=== PATIENT | male | born 1980 | race Caucasian/White ===

== ENCOUNTER → 2017-02-25 | Outpatient (CLI) | payer OTHER ==
[~2017-02-25] MED LIST: CETI10TA84 PO; CLON0.5T3 PO; DULO60CA44 PO; FENO54TA PO; GABA1CAP PO; GABA800T PO; HYDR-5688 PO; HYDR25TA4 PO; ONDA4TAB7 SL; PANT40TA PO; WLLSR/150 PO
[2017-02-25 12:40] LABS: BLOOD UREA NITROGEN 16 mg/dl (7-18); CALCIUM 9.3 mg/dl (8.5-10.1); CARBON DIOXIDE 33 mmol/L (21-32); CREATININE 0.84 mg/dl (0.60-1.40); GLUCOSE 94 mg/dl (70-99); POTASSIUM 4.1 mmol/L (3.5-5.1); SODIUM 138 mmol/L (136-145)
== END | disposition home or self-care (01) ==
LOC: C.LABPBG 08:07
PROVIDERS: ATTEND Family Medicine
DX: I10 Essential (primary) hypertension (principal)

== ENCOUNTER → 2017-03-02 | Outpatient (CLI) | payer OTHER ==
--- NOTE | 2017-03-02 13:16 | DIAGNOSTIC IMAGING REPORT ---
PA CHEST WITH ABDOMINAL SERIES CLINICAL HISTORY: Change in bowel habits. Bloating. FINDINGS: A PA chest radiograph is obtained. No prior studies are available for comparison at the time of dictation. The cardiomediastinal silhouette is unremarkable. The lungs and pleural spaces are clear. No pneumothorax is seen. The bony thorax is grossly intact. Supine and erect abdominal radiographs are correlated with abdominal CT dated 06/09/2012. An intrathecal catheter is in place. The tip terminates at the level of T5. The catheter is intact as visualized. There is a nonobstructed abdominal bowel gas pattern. No evidence of intraperitoneal free air is seen. There are no abnormal abdominal calcifications. There are small phleboliths in the pelvis. The lumbosacral spine and bony pelvis appear intact. Fusion hardware is noted in the lumbar spine. IMPRESSION: 1. No active disease in the chest. 2. Nonobstructed abdominal bowel gas pattern. 3. Additional findings as above. Electronically signed by: Bj Jacobo M.D. 03/02/2017 1:15 PM Dictated Date/Time: 03/02/2017 1:13 PM
[2017-03-02 14:34] LABS: BASO % 0.9 %; BASO ABS # 0.05 K/uL (0-0.2); EOS % 6.2 %; EOS ABS # 0.36 K/uL (0-0.5); HEMATOCRIT 40.3 % (42-52); IG# 0.02 K/uL (0.00-0.02); LYMPH % 38.4 %; LYMPH ABS # 2.23 K/uL (1.2-3.4); MEAN CORPUSCULAR HEMOGLOBIN 30.2 pg (25-34); MEAN CORPUSCULAR HGB CONC 34.7 g/dl (32-36); MEAN PLATELET VOLUME 10.6 fL (7.4-10.4); MONO % 9.1 %; MONO ABS # 0.53 K/uL (0.11-0.59); NEUT % 45.1 %; NEUT ABS # 2.61 K/uL (1.4-6.5); PLATELET COUNT 218 K/uL (130-400); RED CELL DISTRIBUTION WIDTH CV 12.7 % (11.5-14.5); RED CELL DISTRIBUTION WIDTH SD 40.7 fL (36.4-46.3)
[2017-03-02 14:56] LABS: ALKALINE PHOSPHATASE 73 U/L (45-117); ALT/SGPT 34 U/L (12-78); AST/SGOT 25 U/L (15-37); TOTAL PROTEIN 7.5 gm/dl (6.4-8.2)
== END | disposition home or self-care (01) ==
LOC: C.LAB1850 12:45
PROVIDERS: ATTEND Registered Nurse
DX: R14.0 Abdominal distension (gaseous) (principal); R19.4 Change in bowel habit

== ENCOUNTER → 2017-03-03 | Outpatient (CLI) | payer OTHER ==
[~2017-03-03] MED LIST changes: +BUPR200T2 PO; +DICY20TA10 PO; +GABA1CAP5 PO; +HYDR1INJ48; +LEVO50TA6 PO; +LISI-461 PO; +NAPR1TAB9 PO; +PRLSR20 PO; +VNTHFA/IN INH
== END | disposition home or self-care (01) ==
LOC: C.LABPBG 11:53
PROVIDERS: ATTEND Family Medicine
DX: R94.6 Abnormal results of thyroid function studies (principal)

== ENCOUNTER → 2017-03-16 | Day surgery (SDC) | payer OTHER ==
[2017-03-04 10:56] VITALS: Ht 176.5 cm; Wt 149.6 kg
[~2017-03-16] VITALS: Ht 176.5 cm; Wt 149.6 kg
[~2017-03-16] MED LIST changes: -CLON0.5T3 PO; -FENO54TA PO; +FENTANYL CITRATE INJ 50 MCG/1 ML 2 ML VIAL ONE; -GABA1CAP PO; -GABA800T PO; +KETAMINE HCL INJ 50 MG/ML 10 ML VIAL ONE; +LIDOCAINE HCL 2% 2 ML VIAL (20MG/ML) ONE; +MIDAZOLAM HCL 1 MG/ML 2ML VIAL ONE; -ONDA4TAB7 SL; -PANT40TA PO; +PROPOFOL IV EMULSION 10 MG/ML 20 ML VIAL IV ONE; +SODIUM CHLORIDE 0.9% 500ML 500 ML IV SCH; -WLLSR/150 PO
--- NOTE | 2017-03-16 12:04 | Endo History and Physical ---
History & Physical Date of Service: Mar 16, 2017. Chief Complaint: ABD BLOATING, BLOODY STOOL, CHANGE IN BOWEL HABITS Referring Physician: JUAN History of Present Illness 36 yo CM who presents for colonoscopy secondary to abdominal bloating, bloody stool and change in bowel habits. Past Surgical History Hx Cardiac Surgery: No Hx Internal Defibrillator: No Hx Pacemaker: No Hx Abdominal Surgery: No Hx of Implantable Prosthesis: No Hx Post-Op Nausea and Vomiting: No Hx Cancer Surgery: No Hx Thoracic Surgery: No Hx Orthopedic: Yes (LEFT KNEE SX X 3, LAMINECTOMY, LUMBAR FUSION/REV (FAILED)" 8 TOTAL BACK SX'S) Hx Urinary Tract Surgery: No Family History Colon CA Social History Smoking Status: Current Every Day Smoker Hx Substance Use: Yes (SEE MED REC "CLEAN FOR 3 YEARS") Hx Alcohol Use: No Allergies Coded Allergies: Animal Dander (Verified Allergy, Mild, UPPER RESPIRATORY S/S, 03/04/17) PT. DENIES ANY ALLERGIC REACTION TO DOGS Dust (Verified Allergy, Mild, UPPER RESPIRATORY S/S, 03/04/17) Vancomycin (Verified Allergy, Unknown, ITCHING/"FELT LIKE RIPPING SKIN OUT ", 03/04/17) Current Medications Reported Home Medications Medications Dose Route/Sig Max Daily Dose Days Date Category Dose Instructions Ventolin Hfa (Albuterol) 200 Puffs/39503 Mcg Aers 2-4 Puffs INH Q6H PRN 03/04/17 Reported Levothyroxine Sodium 50 Mcg Tab 1 Tab PO QAM 03/04/17 Reported Zyrtec (Cetirizine HCl) 10 Mg Tab 10 Mg PO QAM 03/04/17 Reported Prilosec (Omeprazole) 20 Mg Capcr 20 Mg PO QAM 03/04/17 Reported Zestril (Lisinopril) 10 Mg Tab 10 Mg PO QAM 03/04/17 Reported [place] 5MG/325MG (Acetaminophen/Hydrocodone Bitart) Tab 1 Tablet PO TID PRN 03/04/17 Reported PRN PAIN Hctz (Hydrochlorothiazide) 25 Mg Tab 25 Mg PO QAM 03/04/17 Reported Neurontin (Gabapentin) 400 Mg Cap 800 Mg PO TID 03/04/17 Reported Cymbalta (Duloxetine Hcl) 60 Mg Cap 60 Mg PO TID 03/04/17 Reported Dilaudid (Hydromorphone HCl) 1 Mg/Ml Inj 1.95 Mg DAILY 03/04/17 Reported INTERNAL PAIN PUMP WITH DOSE INFUSING, DOSED FROM [facility] Dicyclomine Hcl 20 Mg Tab 1 Tab PO TID 30 03/04/17 Reported Aleve (Naproxen) 220 Mg Tab 220 Mg PO QAM 03/04/17 Reported Wellbutrin Sr (Bupropion HCl) 200 Mg Ertab 200 Mg PO BID 03/04/17 Reported Vital Signs Weight (Kilograms): 149.55 Height (Feet): 5 Height (Inches): 9.5 Date Time Temp Pulse Resp B/P (MAP) Pulse Ox O2 Delivery O2 Flow Rate FiO2 03/16/17 11:11 36.3 105 20 183/96 (125) 98 Room Air Physical Exam General Appearance: WD/WN, no apparent distress Respiratory/Chest: Auscultation: breath sounds normal Cardiovascular: Heart Auscultation: RRR Abdomen: Bowel Sounds: normal Inspection & Palpation: soft, non-distended, no tenderness, guarding & rebound Assessment and Plan Assessment: 36 yo CM who presents for colonoscopy secondary to abdominal bloating, bloody stool and change in bowel habits. Plan: Proceed with colonoscopy.
--- NOTE | 2017-03-16 12:36 | GI REPORT ---
Procedure Date: 03/16/2017 12:11 PM Procedure: Colonoscopy Indications: Change in bowel habits Medicines: Monitored Anesthesia Care Complications: No immediate complications. Estimated Blood Loss: Estimated blood loss: none. Procedure: Pre-Anesthesia Assessment: - Prior to the procedure, a History and Physical was performed, and patient medications and allergies were reviewed. The patient's tolerance of previous anesthesia was also reviewed. The risks and benefits of the procedure and the sedation options and risks were discussed with the patient. All questions were answered, and informed consent was obtained. Prior Anticoagulants: The patient has taken no previous anticoagulant or antiplatelet agents. ASA Grade Assessment: II - A patient with mild systemic disease. After reviewing the risks and benefits, the patient was deemed in satisfactory condition to undergo the procedure. After I obtained informed consent, the scope was passed under direct vision. Throughout the procedure, the patient's blood pressure, pulse, and oxygen saturations were monitored continuously. The Scope was introduced through the anus and advanced to the terminal ileum. The colonoscopy was performed without difficulty. The patient tolerated the procedure well. The quality of the bowel preparation was good. The terminal ileum, ileocecal valve, appendiceal orifice, and rectum were photographed. Findings: The perianal and digital rectal examinations were normal. Two sessile polyps were found in the rectum and cecum. The polyps were 4 to 8 mm in size. These polyps were removed with a hot snare. Resection and retrieval were complete. Non-bleeding internal hemorrhoids were found during retroflexion. The hemorrhoids were small. Impression: - Two 4 to 8 mm polyps in the rectum and in the cecum, removed with a hot snare. Resected and retrieved. - Non-bleeding internal hemorrhoids. Recommendation: - Resume previous diet. - Continue present medications. - Repeat colonoscopy for surveillance based on pathology results. - Return to primary care physician as previously scheduled. Zan Reina, DO 03/16/2017 12:36:02 PM This report has been signed electronically. Note Initiated On: 03/16/2017 12:11 PM I attest to the content of the Intraoperative Record and orders documented therein, exceptions below
--- NOTE | 2017-03-16 12:39 | Discharge Instructions ---
Endoscopy Patient Instructions Date / Procedure(s) Performed Mar 16, 2017. Colonoscopy Allergy Information Coded Allergies: Animal Dander (Verified Allergy, Mild, UPPER RESPIRATORY S/S, 03/04/17) PT. DENIES ANY ALLERGIC REACTION TO DOGS Dust (Verified Allergy, Mild, UPPER RESPIRATORY S/S, 03/04/17) Vancomycin (Verified Allergy, Unknown, ITCHING/"FELT LIKE RIPPING SKIN OUT ", 03/04/17) Discharge Date / Findings Mar 16, 2017. Colon polyp Rectal polyp Internal hemorrhoids Medication Instructions Stopped Medication(s): ROSA OK to resume all medications today as prescribed Reported Home Medications Medications Dose Route/Sig Max Daily Dose Days Date Category Dose Instructions Ventolin Hfa (Albuterol) 200 Puffs/84865 Mcg Aers 2-4 Puffs INH Q6H PRN 03/04/17 Reported Levothyroxine Sodium 50 Mcg Tab 1 Tab PO QAM 03/04/17 Reported Zyrtec (Cetirizine HCl) 10 Mg Tab 10 Mg PO QAM 03/04/17 Reported Prilosec (Omeprazole) 20 Mg Capcr 20 Mg PO QAM 03/04/17 Reported Zestril (Lisinopril) 10 Mg Tab 10 Mg PO QAM 03/04/17 Reported [place] 5MG/325MG (Acetaminophen/Hydrocodone Bitart) Tab 1 Tablet PO TID PRN 03/04/17 Reported PRN PAIN Hctz (Hydrochlorothiazide) 25 Mg Tab 25 Mg PO QAM 03/04/17 Reported Neurontin (Gabapentin) 400 Mg Cap 800 Mg PO TID 03/04/17 Reported Cymbalta (Duloxetine Hcl) 60 Mg Cap 60 Mg PO TID 03/04/17 Reported Dilaudid (Hydromorphone HCl) 1 Mg/Ml Inj 1.95 Mg DAILY 03/04/17 Reported INTERNAL PAIN PUMP WITH DOSE INFUSING, DOSED FROM [facility] Dicyclomine Hcl 20 Mg Tab 1 Tab PO TID 30 03/04/17 Reported Aleve (Naproxen) 220 Mg Tab 220 Mg PO QAM 03/04/17 Reported Wellbutrin Sr (Bupropion HCl) 200 Mg Ertab 200 Mg PO BID 03/04/17 Reported Provider Instructions Activity Restrictions - No exercising or heavy lifting for 24 hours. - Do not drink alcohol the day of the procedure. - Do not drive a car or operate machinery until the day after the procedure. - Do not make any important decisions or sign important papers in 24 hours after the procedure. Following Day: - Return to full activity which may include returning to work/school. Diet Start your diet with liquids and light foods (jello, soup, juice, toast). Then eat your usual diet if not nauseated. Treatment For Common After Affects For mild abdominal pain, bloating, or excessive gas: - Rest - Eat lightly - Lie on right side Follow-Up Information Follow-up with JUAN as scheduled Anesthesia Information What You Should Know You have had a procedure that required some medicine to reduce anxiety and discomfort. This treatment is called moderate sedation. After receiving the treatment, you may be sleepy, but you will be able to breathe on your own. The effects of the treatment may last for several hours. Follow these instructions along with Activity/Diet recommendations noted above: * Do NOT do anything where dizziness or clumsiness would be dangerous. * Rest quietly at home today, then you can be up and about tomorrow. * Have a responsible person stay with you the rest of today. * You may have had an I.V. today. If so, you may take the dressing off later today. Recommendations Call your doctor if: * Trouble breathing * Continuous vomiting for more than 24 hours * Temperature above 101 degrees * Severe abdominal pain or bloating * Pain not relieved by pain medicine ordered * There is increased drainage or redness from any incision * A large amount of rectal bleeding greater than 2-3 tablespoons. (If you had a polyp/s removed or have hemorrhoids, a small amount of blood - from the rectum is to be expected.) * You have any unanswered questions or concerns. IN THE EVENT OF A SERIOUS EMERGENCY, GO TO THE NEAREST EMERGENCY ROOM Your discharge instructions were prepared by provider Zan Reina. Patient Instructions Signature Page Warren Voss Patient (or Guardian) Signature/Date: I have read and understand the instructions given to me by my caregivers. Caregiver/RN/Doctor Signature/Date: The above-named patient and/or guardian has received patient instructions on this date. + Original Patient Signature Page (only) stays with chart. Please make copy for patient.
--- NOTE | 2017-03-16 12:50 | Anesthesiology Progress Note ---
Anesthesia Post Op Note Date & Time Mar 16, 2017 at 12:50 Vital Signs Pain Intensity: 6 Vital Signs Past 12 Hours Date Time Temp Pulse Resp B/P (MAP) Pulse Ox O2 Delivery O2 Flow Rate FiO2 03/16/17 12:38 96 20 137/79 (98) 95 Room Air 03/16/17 11:11 36.3 105 20 183/96 (125) 98 Room Air Notes Mental Status: alert / awake / arousable, participated in evaluation Pt Amnestic to Procedure: Yes Nausea / Vomiting: adequately controlled Pain: adequately controlled Airway Patency, RR, SpO2: stable & adequate BP & HR: stable & adequate Hydration State: stable & adequate Anesthetic Complications: no major complications apparent
[2017-03-16 13:08] VITALS: BP 138/81; PULSE 92; O2SAT 95
== END | disposition home or self-care (01) ==
LOC: C.GI 10:52
PROVIDERS: ATTEND Internal Medicine
DX: R19.4 Change in bowel habit (principal); K63.5 Polyp of colon; K64.8 Other hemorrhoids; R14.0 Abdominal distension (gaseous); K92.1 Melena; F17.200 Nicotine dependence, unspecified, uncomplicated; J45.909 Unspecified asthma, uncomplicated; I10 Essential (primary) hypertension; E78.5 Hyperlipidemia, unspecified; K21.9 Gastro-esophageal reflux disease without esophagitis; E03.9 Hypothyroidism, unspecified; Z98.1 Arthrodesis status; E66.9 Obesity, unspecified; Z88.1 Allergy status to other antibiotic agents

== ENCOUNTER → 2017-05-17 | Day surgery (SDC) | payer OTHER ==
[2017-05-03 11:00] VITALS: Ht 172.7 cm; Wt 150.0 kg
[~2017-05-17] VITALS: Ht 172.7 cm; Wt 150.0 kg
[~2017-05-17] MED LIST changes: -FENTANYL CITRATE INJ 50 MCG/1 ML 2 ML VIAL ONE; +GABA-1220 PO; -GABA1CAP5 PO; -KETAMINE HCL INJ 50 MG/ML 10 ML VIAL ONE; -LEVO50TA6 PO; -MIDAZOLAM HCL 1 MG/ML 2ML VIAL ONE; +SODIUM CHLORIDE 0.9% 500ML 500 ML IV ONE; -SODIUM CHLORIDE 0.9% 500ML 500 ML IV SCH
--- NOTE | 2017-05-17 13:08 | Endo History and Physical ---
History & Physical Date of Service: May 17, 2017. Chief Complaint: Abd pain, Reflux Referring Physician: Rhina Saldivar History of Present Illness 37 yo CM who presents for EGD secondary to abdominal pain and GERD. Past Surgical History Hx Cardiac Surgery: No Hx Internal Defibrillator: No Hx Pacemaker: No Hx Abdominal Surgery: No Hx of Implantable Prosthesis: No Hx Post-Op Nausea and Vomiting: No Hx Cancer Surgery: No Hx Thoracic Surgery: No Hx Orthopedic: Yes (LEFT KNEE SX X 3, LAMINECTOMY, LUMBAR FUSION/REV (FAILED)" 8 TOTAL BACK SX'S) Hx Urinary Tract Surgery: No Family History Colon CA Social History Smoking Status: Current Every Day Smoker Hx Substance Use: Yes (SEE MED REC "CLEAN FOR 3 YEARS") Hx Alcohol Use: No Allergies Coded Allergies: Animal Dander (Verified Allergy, Mild, UPPER RESPIRATORY S/S, 05/03/17) PT. DENIES ANY ALLERGIC REACTION TO DOGS Dust (Verified Allergy, Mild, UPPER RESPIRATORY S/S, 05/03/17) Vancomycin (Verified Allergy, Unknown, ITCHING/"FELT LIKE RIPPING SKIN OUT ", 05/17/17) Current Medications Reported Home Medications Medications Dose Route/Sig Max Daily Dose Days Date Category Dose Instructions Ventolin Hfa (Albuterol) 200 Puffs/75480 Mcg Aers 2-4 Puffs INH Q6H PRN 03/04/17 Reported Zyrtec (Cetirizine HCl) 10 Mg Tab 10 Mg PO QAM 03/04/17 Reported Prilosec (Omeprazole) 20 Mg Capcr 20 Mg PO QAM 03/04/17 Reported Zestril (Lisinopril) 10 Mg Tab 10 Mg PO QAM 03/04/17 Reported [place] 5MG/325MG (Acetaminophen/Hydrocodone Bitart) Tab 1 Tablet PO TID PRN 03/04/17 Reported PRN PAIN Hctz (Hydrochlorothiazide) 25 Mg Tab 25 Mg PO QAM 03/04/17 Reported Neurontin (Gabapentin) 400 Mg Cap 800 Mg PO TID 03/04/17 Reported Cymbalta (Duloxetine Hcl) 60 Mg Cap 60 Mg PO TID 03/04/17 Reported Dilaudid (Hydromorphone HCl) 1 Mg/Ml Inj 1.95 Mg DAILY 03/04/17 Reported INTERNAL PAIN PUMP WITH DOSE INFUSING, DOSED FROM [facility] Dicyclomine Hcl 20 Mg Tab 1 Tab PO TID 30 03/04/17 Reported Aleve (Naproxen) 220 Mg Tab 220 Mg PO QAM 03/04/17 Reported Wellbutrin Sr (Bupropion HCl) 200 Mg Ertab 200 Mg PO BID 03/04/17 Reported Vital Signs Weight (Kilograms): 150 Height (Feet): 5 Height (Inches): 8 Physical Exam General Appearance: WD/WN, no apparent distress Respiratory/Chest: Auscultation: breath sounds normal Cardiovascular: Heart Auscultation: RRR Abdomen: Bowel Sounds: normal Inspection & Palpation: soft, non-distended, no tenderness, guarding & rebound Assessment and Plan Assessment: 37 yo CM who presents for EGD secondary to abdominal pain and GERD. Plan: Proceed with EGD.
--- NOTE | 2017-05-17 13:38 | GI REPORT ---
Procedure Date: 05/17/2017 12:57 PM Procedure: Upper GI endoscopy Indications: Epigastric abdominal pain Medicines: Monitored Anesthesia Care Complications: No immediate complications. Estimated Blood Loss: Estimated blood loss: none. Procedure: Pre-Anesthesia Assessment: - Prior to the procedure, a History and Physical was performed, and patient medications and allergies were reviewed. The patient's tolerance of previous anesthesia was also reviewed. The risks and benefits of the procedure and the sedation options and risks were discussed with the patient. All questions were answered, and informed consent was obtained. Prior Anticoagulants: The patient has taken no previous anticoagulant or antiplatelet agents. ASA Grade Assessment: III - A patient with severe systemic disease. After reviewing the risks and benefits, the patient was deemed in satisfactory condition to undergo the procedure. After obtaining informed consent, the endoscope was passed under direct vision. Throughout the procedure, the patient's blood pressure, pulse, and oxygen saturations were monitored continuously. The On-site loaner was introduced through the mouth, and advanced to the second part of duodenum. The upper GI endoscopy was accomplished without difficulty. The patient tolerated the procedure well. Findings: The esophagus was normal. Localized mild inflammation was found in the gastric antrum. Biopsies were taken with a cold forceps for histology. The examined duodenum was normal. Impression: - Normal esophagus. - Gastritis. Biopsied. - Normal examined duodenum. Recommendation: - Resume previous diet. - Continue present medications. - Await pathology results. - Return to primary care physician as previously scheduled. Zan Reina, 05/17/2017 1:37:40 PM This report has been signed electronically. Note Initiated On: 05/17/2017 12:57 PM I attest to the content of the Intraoperative Record and orders documented therein, exceptions below
--- NOTE | 2017-05-17 13:38 | Discharge Instructions ---
Endoscopy Patient Instructions Date / Procedure(s) Performed May 17, 2017. EGD Allergy Information Coded Allergies: Animal Dander (Verified Allergy, Mild, UPPER RESPIRATORY S/S, 05/03/17) PT. DENIES ANY ALLERGIC REACTION TO DOGS Dust (Verified Allergy, Mild, UPPER RESPIRATORY S/S, 05/03/17) Vancomycin (Verified Allergy, Unknown, ITCHING/"FELT LIKE RIPPING SKIN OUT ", 05/17/17) Discharge Date / Findings May 17, 2017. Gastritis s/p biopsies Medication Instructions OK to resume all medications today as prescribed Reported Home Medications Medications Dose Route/Sig Max Daily Dose Days Date Category Dose Instructions Ventolin Hfa (Albuterol) 200 Puffs/70102 Mcg Aers 2-4 Puffs INH Q6H PRN 03/04/17 Reported Zyrtec (Cetirizine HCl) 10 Mg Tab 10 Mg PO QAM 03/04/17 Reported Prilosec (Omeprazole) 20 Mg Capcr 20 Mg PO QAM 03/04/17 Reported Zestril (Lisinopril) 10 Mg Tab 10 Mg PO QAM 03/04/17 Reported [place] 5MG/325MG (Acetaminophen/Hydrocodone Bitart) Tab 1 Tablet PO TID PRN 03/04/17 Reported PRN PAIN Hctz (Hydrochlorothiazide) 25 Mg Tab 25 Mg PO QAM 03/04/17 Reported Neurontin (Gabapentin) 400 Mg Cap 800 Mg PO TID 03/04/17 Reported Cymbalta (Duloxetine Hcl) 60 Mg Cap 60 Mg PO TID 03/04/17 Reported Dilaudid (Hydromorphone HCl) 1 Mg/Ml Inj 1.95 Mg DAILY 03/04/17 Reported INTERNAL PAIN PUMP WITH DOSE INFUSING, DOSED FROM [facility] Dicyclomine Hcl 20 Mg Tab 1 Tab PO TID 30 03/04/17 Reported Aleve (Naproxen) 220 Mg Tab 220 Mg PO QAM 03/04/17 Reported Wellbutrin Sr (Bupropion HCl) 200 Mg Ertab 200 Mg PO BID 03/04/17 Reported Provider Instructions Activity Restrictions - No exercising or heavy lifting for 24 hours. - Do not drink alcohol the day of the procedure. - Do not drive a car or operate machinery until the day after the procedure. - Do not make any important decisions or sign important papers in 24 hours after the procedure. Following Day: - Return to full activity which may include returning to work/school. Diet Start your diet with liquids and light foods (jello, soup, juice, toast). Then eat your usual diet if not nauseated. Treatment For Common After Affects For mild abdominal pain, bloating, or excessive gas: - Rest - Eat lightly - Lie on right side Follow-Up Information Follow-up with Rhina Saldivar as scheduled Anesthesia Information What You Should Know You have had a procedure that required some medicine to reduce anxiety and discomfort. This treatment is called moderate sedation. After receiving the treatment, you may be sleepy, but you will be able to breathe on your own. The effects of the treatment may last for several hours. Follow these instructions along with Activity/Diet recommendations noted above: * Do NOT do anything where dizziness or clumsiness would be dangerous. * Rest quietly at home today, then you can be up and about tomorrow. * Have a responsible person stay with you the rest of today. * You may have had an I.V. today. If so, you may take the dressing off later today. Recommendations Call your doctor if: * Trouble breathing * Continuous vomiting for more than 24 hours * Temperature above 101 degrees * Severe abdominal pain or bloating * Pain not relieved by pain medicine ordered * There is increased drainage or redness from any incision * A large amount of rectal bleeding greater than 2-3 tablespoons. (If you had a polyp/s removed or have hemorrhoids, a small amount of blood - from the rectum is to be expected.) * You have any unanswered questions or concerns. IN THE EVENT OF A SERIOUS EMERGENCY, GO TO THE NEAREST EMERGENCY ROOM Your discharge instructions were prepared by provider Zan Reina. Patient Instructions Signature Page Warren Voss Patient (or Guardian) Signature/Date: I have read and understand the instructions given to me by my caregivers. Caregiver/RN/Doctor Signature/Date: The above-named patient and/or guardian has received patient instructions on this date. + Original Patient Signature Page (only) stays with chart. Please make copy for patient.
[2017-05-17 14:01] VITALS: BP 134/78; PULSE 80; O2SAT 95
--- NOTE | 2017-05-17 14:06 | Anesthesiology Progress Note ---
Anesthesia Post Op Note Date & Time May 17, 2017 at 14:06 Vital Signs Pain Intensity: 0 Vital Signs Past 12 Hours Date Time Temp Pulse Resp B/P (MAP) Pulse Ox O2 Delivery O2 Flow Rate FiO2 05/17/17 14:01 80 16 134/78 (96) 95 Room Air 05/17/17 13:46 83 16 132/82 (99) 94 Room Air 05/17/17 13:31 91 16 116/62 (80) 94 Room Air 05/17/17 13:13 37.1 85 18 122/71 (88) 94 Room Air Notes Mental Status: alert / awake / arousable, participated in evaluation Pt Amnestic to Procedure: Yes Nausea / Vomiting: adequately controlled Pain: adequately controlled Airway Patency, RR, SpO2: stable & adequate BP & HR: stable & adequate Hydration State: stable & adequate Anesthetic Complications: no major complications apparent
== END | disposition home or self-care (01) ==
LOC: C.GI 12:22
PROVIDERS: ATTEND Internal Medicine
DX: R10.9 Unspecified abdominal pain (principal); K21.9 Gastro-esophageal reflux disease without esophagitis; K29.70 Gastritis, unspecified, without bleeding; Z98.1 Arthrodesis status; Z80.0 Family history of malignant neoplasm of digestive organs; F17.200 Nicotine dependence, unspecified, uncomplicated; Z88.1 Allergy status to other antibiotic agents; Z91.048 Other nonmedicinal substance allergy status; J45.909 Unspecified asthma, uncomplicated; I10 Essential (primary) hypertension; E78.5 Hyperlipidemia, unspecified; E66.01 Morbid (severe) obesity due to excess calories